=== PATIENT | female | born 1970 | race Caucasian/White ===

== ENCOUNTER 2016-11-26 14:53 | Emergency (ER) | payer MEDICAID, OTHER ==
[~2016-11-26] VITALS: Ht 157.5 cm; Wt 70.0 kg
[2016-11-26 14:55] VITALS: Ht 157.5 cm; Wt 70.0 kg
[2016-11-26] MEDS ORDERED: ONDANSETRON (ODT) 4 MG TAB ODT STA (15:16)
[2016-11-26] MEDS ORDERED: HYDROCODONE/APAP (5/325) TAB PO ONE (15:30)
--- NOTE | 2016-11-26 15:44 | RADRPT ---
PROCEDURE: Abdominal ultrasound CLINICAL INDICATION: Abdominal pain TECHNIQUE: Churchill scale ultrasound images of the four abdominal quadrant was performed for evaluatio n of ascites/free fluid. COMPARISON: Abdominal ultrasound 12/20/2015 FINDINGS: No ascites/free fluid is seen. IMPRESSION: No free fluid is seen. RPTAT: AADD .Chi Rea MD, MD Date Time Electronically viewed and signed by .Chi Rea MD, on 11/26/2016 15:44 .B/
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
--- NOTE | 2016-11-26 16:05 | RADRPT ---
PROCEDURE: XR Wrist. CLINICAL INDICATION: Pain. Trauma. TECHNIQUE: Left wrist x-rays, three views. COMPARISON: Left hand x-rays 11/26/2016. FINDINGS: Bone density appears normal. Bony cortices are intact. Joint spaces are well maintained. Carpal b one alignment is normal. Soft tissues are unremarkable. IMPRESSION: No evidence of acute osseous abnormality. RPTAT: PP .Pili Ortez MD, MD Date Time Electronically viewed and signed by .Pili Ortez MD, MD on 11/26/2016 16:05 .T/
--- NOTE | 2016-11-26 16:06 | RADRPT ---
PROCEDURE: XR Pelvis. CLINICAL INDICATION: Pain. Trauma. TECHNIQUE: Pelvic x-ray, single AP view. COMPARISON: None. FINDINGS: Bone density appears normal. There is no visible fracture. The hip and sacroiliac joints are well ma intained. Femoral head and neck contour is normal, bilaterally. Soft tissues are unremarkable. IMPRESSION: Unremarkable pelvic x-ray. RPTAT: PP .Pili Ortez MD, MD Date Time Electronically viewed and signed by .Pili Ortez MD, on 11/26/2016 16:06 .T/
[2016-11-26] MEDS ORDERED: NAPR-260 PO (16:12)
[2016-11-26] MEDS ORDERED: HYDR-906 PO (16:12)
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
== END 2016-11-26 16:41 | disposition home or self-care (01) ==
LOC: FTE 14:53
DX: R10.84 Generalized abdominal pain (principal); Z04.1 Encounter for examination and observation following transport accident
CPT/HCPCS: 72170; 73110; 73130; 76705; Z7502; Z7610